=== PATIENT | male | born 1970 | race Caucasian/White ===

== ENCOUNTER 2022-06-26 09:45 | Outpatient (CLI) | payer BC, SELFPAY ==
[2022-06-26 15:01] LABS: SARS PCR* Negative SARS-CoV-2 (Negative)
== END 2022-06-26 09:46 | disposition home or self-care (01) ==
LOC: FBOREF 09:45
PROVIDERS: PCP Family Medicine; Visit Provider Family Medicine
DX: Z20.822 Contact with and (suspected) exposure to COVID-19 (principal); Z01.818 Encounter for other preprocedural examination
CPT/HCPCS: 87635

== ENCOUNTER 2022-06-27 11:12 | Outpatient (CLI) | payer BC, SELFPAY | END 2022-06-27 11:13 | disposition home or self-care (01) | LOC: OP CLINIC 11:13 | PROVIDERS: PCP Family Medicine; Visit Provider Internal Medicine | DX: Z12.11 Encounter for screening for malignant neoplasm of colon (principal); K63.5 Polyp of colon | CPT/HCPCS: 45380; 88305; 99153; J2250; J3010 ==

== ENCOUNTER 2023-02-23 16:40 | Outpatient (CLI) | payer BC, SELFPAY | END 2023-02-23 16:41 | disposition home or self-care (01) | PROVIDERS: PCP Family Medicine; Visit Provider Family Medicine | DX: I10 Essential (primary) hypertension (principal); Z12.5 Encounter for screening for malignant neoplasm of prostate | CPT/HCPCS: 80048; 84153 ==

== ENCOUNTER 2024-05-03 14:15 | Outpatient (CLI) | payer BC, SELFPAY ==
--- OUTSIDE RECORDS SUMMARY | 2024-05-03 14:18 | XMS_ITS | Clinical Summary ---
Author Organization [facility] Address [place], [place] [address] Care Team Providers Care Electronic Industrial Controls Mechanic Name Role Phone Bk Pimentel MD Primary Care Provider Allergies No known active allergies Medications Medication Sig Dispensed Refills Start Date End Date Status LORazepam (ATIVAN) 0.5 mg tabIndications:Panic disorder without agoraphobia Take 1 tablet by mouth every 6 hours if needed for Anxiety. 30 tablet 10/23/2017 Active omeprazole (PRILOSEC) 20 mg Delayed-Release capsuleIndications:Ga stroesophageal reflux disease with esophagitis Take 1 capsule by mouth once daily before a meal. 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 30 tablet 12/01/2018 Active metoprolol succinate (TOPROL XL) 50 mg sustained-release tablet Take 50 mg by mouth once daily. 02/21/2020 Active Active Problems Problem Noted Date Diagnosed Date Esophageal reflux 11/15/2007 Panic disorder without agoraphobia 11/15/2007 Obsessive-compulsive disorders 11/15/2007 ALLERGIC RHINITIS 11/15/2007 Immunizations Name Administration Dates Next Due DTaP 03/23/1980, 4,1972,1971,1972 Influenza A (H1N1), Inactiva nicolas (Age >=3 Years) 10/01/2009 Influenza, IIV4 10/23/2017 MMR 06/25/1990,07/06/1973 Oral Polio Vaccine 04/08/1974,1972, 972 Smallpox (Vaccinia) Live [id number] 03/09/1974 Td (Age >=7 Years) 07/06/2002,06/25/1990 Tdap 05/07/2011 Tuberculin (PPD) 05/31/1991 Family History Medical History Relation Name Comments Hypertension Brother 3 Cancer Father lip Diabetes Maternal Grandmother Relation Name Status Comments Brother 1 Alive Brother 2 Alive Brother 3 Father Alive Maternal Grandmother Mother Alive Social History Tobacco Use Types Packs/Day Years Used Date Smoking Tobacco: Never Cigarettes Smokeless Tobacco: Current Chew Tobacco Cessation:Counseling Given: Yes Alcohol Use Standard Drinks/Week Comments Yes 0 (1 standard drink = 0.6 oz pur e alcohol) Social PHQ-2 Answer Date Recorded PHQ-2 TOTAL SCORE 0 06/08/2020 Social Connections Answer Date Recorded Frequency of Communication with Friends and Fami ly Not on file 11/09/2021 Financial Resource Strain Answer Date R ecorded Difficulty of Paying Living Expenses Not on file 11/09/2021 Difficulty of Paying Living Expenses Not on file 11/09/2021 Sex and Gender Information Value Date Recorded Sex Assigned at Not on file Gender Identity Not on file Sexual Orientation Not on file Obstetrics History Last Filed Vital Signs Vital Sign Reading Time Taken Comments Blood Pressure 130/92 06/08/2020 10:59 AM CDT Pulse 76 06/08/2020 10:59 AM CDT Temperature 36.6 ??C (97.8 ??F) 06/08/2020 10:59 AM C DT Respiratory Rate 13 10/23/2017 4:01 PM VETERINARY PHYSIOLOGIST Oxygen Saturation 98% 06/08/2020 10:59 AM CDT Inhaled Oxygen Concentration - - Weight 99.5 kg (219 lb 6.4 oz) 06/08/2020 10:59 AM CDT Height 188 cm (6' 2) 06/08/2020 10:59 AM CDT Body Mass Index 28.17 06/08/2020 10:59 AM CDT Plan of Treatment Health Maintenance Due Date Last Done Comments HIV for age 15-65 1987 Hepatitis C screening for ag e 18-79 1990 Colonoscopy through age 75 2017 Tetanus booster 05/07/2021 05/07/2011, 07/06/2002, 06/25/1990 BMI (ht and wt on same day) for age 18+ 06/08/2021 06/08/2020, 10/23/2017, 06/24/2016 Depression screening for age 12+ 06/08/2021 06/08/2020, 10/23/2017, 06/24/2016 Zoster (shingles) series for age 50+ (1 of 2) 2022 Lipids for age 45-75 10/23/2022 10/23/2017, 05/07/2011, 11/15/2007 COVID-19 vaccine series (2022-24 season) 2023 Influenza for age 50-64 07/10/2024 10/23/20 17, 10/01/2009 Tdap Completed 05/07/2011 Pneumococcal series for age 6-64 Aged Out No longer eligible b ased on patient's age to complete this topic Procedures Procedure Name Priority Date/Time Associated Diagnosis Comments LIPID PANEL W REFLEX MEASURED LDL Routine 10/23/2017 4:46 PM VETERINARY PHYSIOLOGIST Gastroesophageal reflux disease with esophagitis from Last 3 Months or Most Recently Relevant to Health Maintenance Results * (ABNORMAL) LIPID PANEL W REFLEX MEASURED LDL (10/23/2017 4:46 PM VETERINARY PHYSIOLOGIST) CHOLESTEROL,TOTAL 152 100 - 199 mg/dL 10/23/2017 6:04 PM VETERINARY PHYSIOLOGIST [facility] TRIGLYCERIDES 275(H) <150 mg/dL 10/23/2017 6:04 PM VETERINARY PHYSIOLOGIST [facility] HDL CHOLESTEROL 50 >40 mg/dL 7 6:04 PM VETERINARY PHYSIOLOGIST [facility] NON-HDL CHOLESTEROL 102 <145 mg/dl 10/23/2017 6:04 PM VETERINARY PHYSIOLOGIST [facility] CHOL/HDL RATIO 3.04 <4.50 10/23/2017 6:04 PM VETERINARY PHYSIOLOGIST [facility] LDL CHOLESTEROL 47 <=130 mg/dL 10/23/2017 6:04 PM VETERINARY PHYSIOLOGIST [facility] PROVIDER ORDERED STATUS RANDOM 10/23/2017 6:04 PM VETERINARY PHYSIOLOGIST [facility] Blood BLOOD SPECIMEN / Unknown Venipuncture / Unknown 10/23/2017 4:46 PM VETERINARY PHYSIOLOGIST 10/23/2017 4:46 PM VETERINARY PHYSIOLOGIST Vineet Sanches MD CHEMISTRY [facility] [address] [place] [address] from Last 3 Months or Most Recently Relevant to Health Maintenance Care Teams Electronic Industrial Controls Mechanic Relationship Specialty Start Date End Date Bk Pimentel MD [address] [place] [address] PCP - General Family Practice 10/15/18
== END 2024-05-03 14:16 | disposition home or self-care (01) ==
PROVIDERS: PCP Family Medicine; Visit Provider Family Medicine
DX: Z00.00 Encounter for general adult medical examination without abnormal findings (principal); I10 Essential (primary) hypertension; Z12.5 Encounter for screening for malignant neoplasm of prostate; Z13.6 Encounter for screening for cardiovascular disorders
CPT/HCPCS: 80048; 80061; G0103

== ENCOUNTER 2025-08-07 16:03 | Outpatient (CLI) | payer BC, OTHER, SELFPAY | END 2025-08-07 16:04 | disposition home or self-care (01) | PROVIDERS: PCP Family Medicine; Visit Provider Family Medicine | DX: Z12.5 Encounter for screening for malignant neoplasm of prostate (principal); I10 Essential (primary) hypertension | CPT/HCPCS: 80048; 80061; G0103 ==